=== PATIENT | female | born 1965 | race Caucasian/White ===

== ENCOUNTER 2020-02-08 08:41 | Outpatient (CLI) | payer BC ==
--- NOTE | 2020-02-08 09:32 | ULT ---
Exam: Right upper quadrant ultrasound: HISTORY: Epigastric abdominal pain. COMPARISON: None FINDINGS: Liver: Nonspecific mild coarsened echotexture of the liver is nonspecific but can be seen with fatty infiltration. No focal hepatic lesion is seen. Gallbladder: No evidence of gallbladder calculi, gallbladder wall thickening, or pericholecystic flui d. Common bile duct: The common duct is normal in caliber measuring 0.4 cm in diameter. Pancreas: Mostly obscured but grossly normal appearance where visualized. Right kidney: Right kidney demonstrates a normal sonographic appearance. The right kidney measures 1 0.3 cm in length. IVC: The visualized IVC demonstrates a normal sonographic appearance. IMPRESSION: 1. Mild coarsened echotexture the liver which can be seen with fatty infiltration. No focal hepatic l esion is seen. 2. No gallbladder calculus is seen, and the common duct is normal in caliber.
== END 2020-02-08 08:42 | disposition home or self-care (01) ==
LOC: SCSULT 08:41
PROVIDERS: ATTEND Internal Medicine Gastroenterology
DX: R10.13 Epigastric pain (principal); R11.2 Nausea with vomiting, unspecified; R93.2 Abnormal findings on diagnostic imaging of liver and biliary tract
CPT/HCPCS: 76705